=== PATIENT | female | born 1980 | race Two or more races ===

== ENCOUNTER 2024-09-04 20:49 | Emergency (ER) | payer BC ==
[~2024-09-04] VITALS: Ht 182.9 cm; Wt 72.6 kg
[2024-09-04] MEDS ORDERED: EPINEPHRINE HCL/PF 1 MG/ML AMPUL ONE (21:35)
[2024-09-04] MEDS ORDERED: METHYLPREDNISOLONE SOD SUCC 125 MG VIAL ONE (21:35)
[2024-09-04] MEDS ORDERED: DIPHENHYDRAMINE HCL 50 MG/ML VIAL 1ML IV ONE (21:45)
[2024-09-04] MEDS ORDERED: 0.9 % SODIUM CHLORIDE 1,000 ML IV ONE (21:45)
[2024-09-04] MEDS ORDERED: EPINEphrine 10 ML DISP.SYRIN IV ONE (21:45)
[2024-09-04] MEDS ORDERED: METHYLPREDNISOLONE SOD SUCC 125 MG VIAL IV ONE (21:45)
[2024-09-04] MEDS ORDERED: ALBUTEROL SULFATE 3 ML/2.5 MG AMPUL.NEB IH ONE (23:15)
[2024-09-05] MEDS ORDERED: MEDROLPACK PO (00:18)
[2024-09-05] MEDS ORDERED: BENADRYL ALLERG25 MG PO (00:18)
[2024-09-05] MEDS ORDERED: EPIPEN0.3 MG/0.1 IJ (00:18)
[2024-09-05] MEDS ORDERED: PROPRANOLOL HCL80 MG PO (17:20)
[2024-09-05] MEDS ORDERED: HYDROXYZINE HCL50 MG PO (21:08)
== END 2024-09-05 00:32 | disposition home or self-care (01) ==
LOC: ER 20:49 → EDBD 23:05 → ER 23:05
DX: T78.40XA Allergy, unspecified, initial encounter (principal); R21 Rash and other nonspecific skin eruption; Z91.018 Allergy to other foods

== ENCOUNTER 2024-09-05 17:02 | Emergency (ER) | payer BC ==
[~2024-09-05] VITALS: Ht 182.9 cm; Wt 72.6 kg
[~2024-09-05 17:02] MED LIST: BENADRYL ALLERG25 MG PO; EPIPEN0.3 MG/0.1 IJ; MEDROLPACK PO
[2024-09-05] MEDS ORDERED: PROPRANOLOL HCL80 MG PO (17:20)
[2024-09-05] MEDS ORDERED: HYDROXYZINE HCL50 MG PO (21:08)
== END 2024-09-05 22:37 | disposition home or self-care (01) ==
LOC: ER 17:02
DX: F41.8 Other specified anxiety disorders (principal); Z91.018 Allergy to other foods; G43.809 Other migraine, not intractable, without status migrainosus